=== PATIENT | female | born 1935 | race Caucasian/White ===

== ENCOUNTER 2016-04-20 17:35 | Inpatient (IN) | payer MEDICARE, OTHER ==
[~2016-04-20] VITALS: Ht 157.5 cm; Wt 93.0 kg
[~2016-04-20 17:35] MED LIST: ADV250INH IH; ALBU8.5H4 IH; ASP81TEC PO; ATEN50TA7 PO; COZ50 PO; FURO20TA PO; LIP20 PO; LUN2 PO; VRP180TCR PO; WEL75 PO
[2016-04-20 17:40] VITALS: BP 126/62; PULSE 71; RESP 18; O2SAT 91
[2016-04-20 18:31] LABS: BASOPHILS % (AUTO) 0.1 % (0-3); EOSINOPHILS % (AUTO) 0.4 % (0-5); MONOCYTES % (AUTO) 6.1 % (4-12); Mean Corpuscular Hemoglobin 28.7 pg (27.0-35.0); Mean Corpuscular Volume 87.7 fL (81-100); NEUTROPHILS % (AUTO) 84.5 % (40-74); Platelet Count 146 bil/L (150-400)
--- NOTE | 2016-04-20 18:34 | ED.REPORT ---
HPI-URI / Cough / Cold Date of Service Apr 20, 2016 ED Provider: Doc,Ed MD History of Present Illness: 81-year-old female here for shortness of breath. Started yesterday and is rapidly worsening. She went to the walk-in clinic and her oxygen was found to be in the 80s. They put her on 2 L of oxygen and bumped her up to the mid 90s and sent her to the emergency room. She is complaining of increasing shortness of breath with activity. In the last few days she has had fever and some new URI symptoms. She has a dry cough with no sputum. Does have a history of COPD. SHe is a pack and a half a day smoker. She wears a CPAP at night but has no home oxygen. She lives alone. She does use inhalers including albuterol and Advair. Denies chest pain, dizziness or lightheadedness Nursing Notes Stated Complaint: SHORT OF BREATH Chief Complaint: Respiratory Complaints Nursing Notes Reviewed: Yes Allergies: Coded Allergies: No Known Allergies (Unverified , 11/23/09) Scheduled Albuterol-Expunged Drug, Do Not Renew! (Albuterol-Expunged Drug, Do Not Renew!) 8.5 Gm Hfa.aer.ad 2 PUFFS IH PRN Every 4-6 hours as needed-Rescue Inhaler Aspirin-Expunged Drug, Do Not Renew! (Aspirin EC-Expunged Drug, Do Not Renew!) 81 Mg Tablet 81 MG PO AM STOPPED 5 DAYS AGO Atenolol-Expunged Drug, Do Not Renew! (Atenolol-Expunged Drug, Do Not Renew!) 50 Mg Tablet 50 MG PO BID Atorvastatin-Expunged Drug, Do Not Renew! (Atorvastatin-Expunged Drug, Do Not Renew!) 20 Mg Tablet 20 MG PO HS Bupropion-Expunged Drug, Do Not Renew! (Bupropion-Expunged Drug, Do Not Renew!) 75 Mg Tablet 150 MG PO AM Flutic/Salmet-Expunged Drug, Do Not Renew! (Advair 500/50-Expunged Drug, Do Not Renew!) 60 Puff Disk 60 PUFF IH BID Furosemide-Expunged Drug, Do Not Renew! (Lasix-Expunged Drug, Do Not Renew!) 20 Mg Tablet 20 MG PO AM Losartan-Expunged Drug, Do Not Renew! (Losartan-Expunged Drug, Do Not Renew!) 50 Mg Tablet 50 MG PO AM Verapamil-Expunged Drug, Do Not Renew! (Verapamil-Expunged Drug, Do Not Renew!) 180 Mg Tablet.sa 180 MG PO BID Scheduled PRN Eszopiclone-Expunged Drug, Do Not Renew! (Lunesta-Expunged Drug, Do Not Renew!) 2 Mg Tablet 2 MG PO HS PRN PRN HS General Time Seen by MD: 18:33 Chief Complaint Cough, non-productive, Fever, Upper resp infection SOB Hx Obtained From: Patient Arrived By: Wheelchair Onset Occurred: Yesterday Symptom Duration: Constant Severity: Current: No pain currently Severity: Maximum: No pain Context: Immunization Status General: All up to date Similar Sx Previous: Yes Past Medical History Past Medical History Notes: hx COPD/smoking Past Medical History Reports: COPD Review of Systems Basic Review of Systems Cardiovascular: No chest pain : No dysuria Psychiatric: Normal thought content Constitutional: Reports: Fever Ears / Nose / Throat: Reports: Nasal congestion Respiratory: Reports: Dyspnea on exertion, Non-productive cough, Shortness of breath, Wheezing GI: Denies: Abdominal pain, Nausea, Vomiting Complete sys rev & neg: except as marked. Physical Exam Initial Vital Signs Vital Signs (First) Date Time Temp Pulse Resp B/P Pulse Ox O2 Delivery O2 Flow Rate FiO2 04/20/16 17:40 37.5 71 18 126/62 91 Nasal Cannula 2 Initial VS: Reviewed, Vital signs abnormal Head / Eyes: Atraumatic, Normocephalic, PERRL Neck: Supple, Non-tender, Full range of motion Cardiovascular: Regular rate & rhythm, Heart sounds normal Skin: Warm, Dry, No cyanosis Neurologic: Alert, Oriented Psychiatric: Mood/affect normal, Behavior normal, Normal thought content General/Constitutional: Awake, Alert, No acute distress ENT: Atraumatic, Airway patent, Mucous membranes moist, Pharynx NL, No peritonsillar abscess, No pooling of secretions, No trismus, Tympanic membs NL, Ext aud canal NL, Mastoid area NL Respiratory / Chest: Atraumatic Wheezing / Retractions: Positive: Wheeze insp/exp diffuse speaking full sentences Head / Eyes: Atraumatic, Normocephalic, PERRL, EOMI Neck: Atraumatic, Supple, Full range of motion Cardiovascular: Heart rate NL, Regular rhythm, Heart sounds NL, No gallop, No murmurs, No rubs Abdomen: Atraumatic, Soft, Non-tender, No guarding, No rebound, BS normoactive Skin: Atraumatic, Color NL, No rash 1+ bilat LE pitting edema Interpretation & Diagnostics Interpretation & Diagnostics: CXR- IMPRESSION: No acute disease or interval change Lab Results Interpretation Result Diagram: 04/20/164 04/20/161813 Test 04/20/16 18:14 White Blood Count 7.4th/mm3 (3.8-10.1) Red Blood Count 4.94mil/mm3 (3.90-5.20) Hemoglobin 14.2g/dL (12.0-15.6) Hematocrit 43.3% (35.0-46.0) Mean Corpuscular Volume 87.7fL (81-100) Mean Corpuscular Hemoglobin 28.7pg (27.0-35.0) Mean Corpuscular Hemoglobin Concent 32.8% (32.0-37.0) Red Cell Distribution Width 14.9% (12.3-15.4) Platelet Count 146bil/L (150-400) Neutrophils (%) (Auto) 84.5% (40-74) Lymphocytes (%) (Auto) 8.8% (14-46) Monocytes (%) (Auto) 6.1% (4-12) Eosinophils (%) (Auto) 0.4% (0-5) Basophils (%) (Auto) 0.1% (0-3) Sodium Level 139mEq/L (134-144) Potassium Level 3.8mEq/L (3.5-5.2) Chloride Level 101mEq/L (97-108) Carbon Dioxide Level 23mmol/L (18-29) Blood Urea Nitrogen 21mg/dL (8-27) Creatinine 0.75mg/dL (0.57-1.00) Estimat Glomerular Filtration Rate 107mL/min (>59) Glucose Level 123mg/dL (60-99) Lactic Acid Level 0.8mmol/L (0.4-2.0) Calcium Level 9.4mg/dL (8.5-10.1) Magnesium Level 1.7mg/dL (1.6-2.6) Total Bilirubin 0.5mg/dL (0.0-1.2) Aspartate Amino Transf (AST/SGOT) 17U/L (0-50) Alanine Aminotransferase (ALT/SGPT) 9U/L (0-32) Alkaline Phosphatase 84U/L (25-165) Troponin T < 0.010ug/L (0.0-0.011) Pro-B-Type Natriuretic Peptide 926.4pg/mL (0-738) Total Protein 6.6g/dL (6.4-8.4) Albumin 3.9g/dL (3.4-5.0) Re-Eval/Medical Decision Med Decision/Clinical Course Med Decision/Clinical Course: Patient states no improvement after first DuoNeb treatment. Lung sounds are improved, no inspiratory wheezes only expiratory wheezes throughout. Patient states she does not know what her normal O2 sats are. RN states she was still mid to high 80s on room air. Second albuterol ordered Per RN patient getting up from bed to chair to bed and sats went down to 86 on 2 L oxygen. [address] Lawton agrees with admit 2100 Dr Allison consulted, will admit pt Daughter will get cpap from home Counseled Regarding: Need for admission Discharge & Departure Shift Change Sign-Out Laboratory Evaluation: Lab evaluation discussed Imaging Studies: Imaging discussed Response to Therapy: Improved Impression: Primary Impression: Influenza A Additional Impressions: COPD (chronic obstructive pulmonary disease) COPD type: unspecified COPD Qualified Code: J44.9 - Chronic obstructive pulmonary disease, unspecified Hypoxia Disposition: ADMITTED TO HOSPITAL Discharge Condition All VS Reviewed: Yes Condition: Stable Referrals: Umer Tucker DO (PCP) EDSupervising Provider for APC: Roxy Lawton MD copies to: Anatoliy Castro MD; Roxy Lawton MD, Linnea K ARNP Apr 20, 2016 18:34
[2016-04-20] MEDS ORDERED: Albuterol-Ipratropium 3 mL Inhalation Solution NEB ONE (18:45)
[2016-04-20 18:52] LABS: TROPONIN T < 0.010 ug/L (0.0-0.011)
[2016-04-20 19:00] LABS: Magnesium 1.7 mg/dL (1.6-2.6)
--- NOTE | 2016-04-20 19:22 | DRSVH ---
PROCEDURE: X-RAY CHEST ONE VIEW, PORTABLE ([id number]) INDICATIONS: SOB TECHNIQUE: One view of the chest was acquired. COMPARISON: [facility], , XR CHEST 2VW, 02/04/2015, 15:45. FINDINGS: Surgical changes and devices: None. Lungs and pleura: No pleural effusions or pneumothorax. Diffuse scarring/atelectasis without interva l change since 02/04/15 Mediastinum: Mediastinal contours appear normal. Heart size is normal. Bones and chest wall: No suspicious bony lesions. Overlying soft tissues appear unremarkable. IMPRESSION: No acute disease or interval change Dictated by: Bryon Quinonez M.D. on 04/20/2016 at 19:19 Approved by: Bryon Quinonez M.D. on 04/20/2016 at 19:21
[2016-04-20 19:29] VITALS: PULSE 69; RESP 20; O2SAT 94
[2016-04-20] MEDS ORDERED: Albuterol 2.5 mg/3 mL Inhalation Solution NEB ONE (19:50)
[2016-04-20 19:55] VITALS: BP 147/72; RESP 29; O2SAT 93
[2016-04-20] MEDS ORDERED: MethylprednisoLONE Sodium Succinate 62.5 mg/mL 2 mL Inj IVPUSH ONE (20:15)
[2016-04-20] MEDS ORDERED: Alum-Mag Hydrox-Simeth 30 mL Suspension PO PRN ×2 (21:20→23:40)
[2016-04-20] MEDS ORDERED: Ondansetron 2 mg/mL 2 mL Inj IVPUSH PRN ×2 (21:20→23:40)
[2016-04-20] MEDS ORDERED: SERT25TA6 PO (23:35)
[2016-04-20] MEDS ORDERED: ADV250INH IH (23:35)
[2016-04-20] MEDS ORDERED: ATOR20TA PO (23:35)
[2016-04-20] MEDS ORDERED: ASPI-973 PO (23:35)
[2016-04-20] MEDS ORDERED: VITA400C64 PO (23:35)
[2016-04-20] MEDS ORDERED: ATEN50TA PO (23:35)
[2016-04-20] MEDS ORDERED: AMLO10TA3 PO (23:35)
[2016-04-20] MEDS ORDERED: ACET325T51 PO (23:35)
[2016-04-20] MEDS ORDERED: ALBU18HF INH (23:35)
[2016-04-20] MEDS ORDERED: HYDR12.55 PO (23:35)
[2016-04-20] MEDS ORDERED: ASCO-294 PO (23:35)
[2016-04-20] MEDS ORDERED: LOSA100T29 PO (23:35)
[2016-04-20] MEDS ORDERED: CHOL200025 PO (23:35)
[2016-04-20] MEDS ORDERED: ZOLP10TA5 PO (23:35)
[2016-04-20] MEDS ORDERED: METF500T4 PO (23:35)
[2016-04-20 23:37] VITALS: BP 144/76; PULSE 74; RESP 20; O2SAT 93
[2016-04-20] MEDS ORDERED: Polyethylene Glycol (PEG) 17 Gm Powder PO PRN (23:40)
[2016-04-20] MEDS ORDERED: Albuterol 1.25 mg/3 mL Inhalation Solution NEB PRN (23:40)
[2016-04-21] VITALS (13 sets, daily range): BP systolic 117–158; BP diastolic 69–81; PULSE 69–86; RESP 18–24; O2SAT 92–94
--- NOTE | 2016-04-21 00:16 | PCM.HPMED ---
Subjective Date of Service Apr 20, 2016 Primary Provider: Admitting Physician: Anatoliy Castro MD Primary Care Physician: Umer Tucker DO Attending Physician: Anatoliy Castro MD Admit Status: From the Emergency Department Chief Complaint: Shortness of breath and cough non-productive, Fever, Upper resp infection History of Present Illness: This is a pleasant 81 Y/O F with history of COPD, current tobacco smoker with 90 -pack-year history, obstructive sleep apnea, diabetes mellitus type II on metformin, hypertension on atenolol and losartan, who presented for worsening shortness of breath for last 1.5 days with any sort of activity. Symptoms are associated with fever, bitemporal headaches, swollen glands, sore throat, dry cough, chills, sweats, and body aches. Of note patient states she has had watery diarrhea. Patient states she tried to call her PCP but was unable to get in and went to walk-in clinic. At the walk-in clinic patient was found to have oxygen saturation in the 80s. Patient was placed on 2 L of oxygen and with improvement in her O2 sats to the 90s. Patient then presented to the emergency room and had rapid flu swab conducted which was positive for influenza. She wears a CPAP at night but has no home oxygen. She lives alone, and has 2 daughters Who come and check on her regularly. She does use inhalers including albuterol and Advair. Denies chest pain, dizziness or lightheadedness , sinus pressure, nausea, vomiting, constipation. In the ED patient had bilateral expiratory wheezes and received DuoNeb therapy with some improvement in respiratory symptoms. Patient was found be positive for influenza with rapid flu swab. Vital signs in ED: Temperature 37.5, pulse 71, blood pressure 126/72, respirations 18, 91% on 2 L nasal cannula. Repeat vitals at 2159 were as follows pulse 71, respirations 27, blood pressure 148/73, 93% on 2 L nasal cannula. Hemogram blood cell count 7.4, hemoglobin 14.2, hematocrit 43.3, platelets 146, neutrophils elevated at 84.5. Chemistry panel: Sodium 139, potassium 3.8, chloride 101, CO2 23, BUN 21, creatinine 0.75, glucose 123, lactic acid 0.8, troponin 0.010, pro BNP 926.4, magnesium 1.7 Chest x-ray:No acute disease or interval change Review of Systems: Comprehensive review of systems was conducted and found to be negative except as described in the history of present illness. Allergies Coded Allergies: No Known Allergies (Unverified , 04/20/16) Home Medications Metformin 500 mg daily Hydrochlorothiazide 12.5 mg daily Amlodipine 10 mg daily Atenolol 50 mg twice a day Lipitor 20 mg daily Losartan 100 mg daily Lunesta 2 mg at bedtime Advair 250/50 micrograms 2 per day Ventolin HFA 90 mg as needed Vitamin C 500 mg daily Vitamin D3 2000 IUs daily Vitamin E 400 IUs daily Acetaminophen 650 mg twice a day Sertraline 25 mg daily Aspirin 81 mg daily PMH hx COPD/smoking Social History Hx Alcohol Use: No Hx Substance Use: No Hx Tobacco Use: No Smoking Status: Current Every Day Smoker (1.5 packs per day) Exam Vital Signs Vital Sign - Last Date Time Temp Pulse Resp B/P Pulse Ox O2 Delivery O2 Flow Rate FiO2 04/20/16 21:59 71 27 148/73 93 Nasal Cannula 04/20/16 19:55 2 04/20/16 17:40 37.5 Exam General: Obese female, appears in mild short of breath, with some use of accessory muscles of respiration. Alert and oriented 3, HEENT: Cephalic atraumatic, pupils equally round and reactive to light and accommodation, extraocular muscles intact, neck, supple nontender, positive anterior cervical adenopathy, no masses, no JVD, throat erythema present, no exudates, Lungs: Bilateral expiratory wheeze, poor air movement and poor anterior- posterior chest expansion with poor inspiratory effort. Heart: Regular rate and rhythm no murmur Abdomen: Obese, soft, nontender, normal bowel tones present, no masses, no organomegaly Genitourinary: No suprapubic tenderness Extremities: Pulses equal laterally a per/lower extremity, no apparent edema Neurologic: Grossly neurologically intact, speaking in full sentences, Skin: Dry Lab and Diagnostics Result Diagram: 04/20/16181304/20/161813 X-Rays, CTs and MRIs Date of Service: 04/20/161806 PROCEDURE: X-RAY CHEST ONE VIEW, PORTABLE ([id number]) COMPARISON: [facility], CR, XR CHEST 2VW, 02/04/2015, 15:45. FINDINGS: Surgical changes and devices: None. Lungs and pleura: No pleural effusions or pneumothorax. Diffuse scarring/ atelectasis without interval change since 02/04/15 Mediastinum: Mediastinal contours appear normal. Heart size is normal. Bones and chest wall: No suspicious bony lesions. Overlying soft tissues appear unremarkable. IMPRESSION: No acute disease or interval change Dictated by: Bryon Quinonez M.D. on 04/20/2016 at 19:19 Approved by: Bryon Quinonez M.D. on 04/20/2016 at 19:21 Assessment & Plan This is a pleasant 81 Y/O F with history of COPD, current tobacco smoker with 90 -pack-year history, obstructive sleep apnea, diabetes mellitus type II on metformin, hypertension on atenolol and losartan, who presented for worsening shortness of breath for last 1.5 days with any sort of activity. Symptoms are associated with fever, bitemporal headaches, swollen glands, sore throat, dry cough, chills, sweats, and body aches. Patient was seen in walking clinic and had O2 sats in the 80s. Patient was was positive for influenza in the ED, as well as given DuoNeb therapy for her shortness of breath with some improvement in symptoms. Patient was admitted to the hospital for influenza and acute respiratory failure. # Acute respiratory failure, present on admission, active - Patient was descending into the 80s while at urgent care. - Physical exam significant for bilateral anterior expiratory wheeze - CXR: No acute disease or interval change - She received DuoNeb therapy X 2 in the ED with improvement in respiratory symptoms. - Physical exam significant for bilateral expiratory wheezes - Telemetry ordered - Blood cultures 2 pending - DuoNeb therapy every 4 hours, albuterol neb therapy every 2 hours when necessary # Acute influenza/viral upper respiratory infection, present on admission, active - Patient was positive for rapid flu swab - Received Tamiflu in the ED - Influenza A/B order depends and - Tamiflu 75 mg twice a day 5 days 04/20/2016 # Chronic problems include # Diabetes mellitus type II - We will continue metformin - lactic acid 0.8 -Hemoglobin A1c pending # COPD, - This does not appear to be a acute exacerbation of COPD and therefore will hold off on steroids at this time. # Tobacco smoker - [id number] history of tobacco use, cigarettes, 1.5 packs per day for 60 years - Nicotine patch ordered # Insomnia - Pharmacy to replace with alternative to Lunesta 2 mg daily at bedtime Disposition: Admitted to in patient service with expected length of stay greater than 2 days, secondary to severity of presenting symptoms, treatment plan, complexity of clinical work up, and risk of adverse events. CODE STATUS: Full Code PCP: Umer Tucker DVT PE prophylaxis: Subcutaneous heparin VTE Prophylaxis: Sub-Q Heparin (Unfractionated) Resuscitation Status: CPR: Attempt Resuscitation Attending Statement The patient was seen and examined together with Dr. Dyer on 04/20 and I agree with the history, exam and plan as outlined in the note above. Jony Dyer DO Apr 20, 2016 23:00 Anatoliy Castro MD Apr 21, 2016 00:27 DVT PE prophylaxis: Subcutaneous heparin VTE Prophylaxis: Sub-Q Heparin (Unfractionated) Resuscitation Status: CPR: Attempt Resuscitation Attending Statement The patient was seen and examined together with Dr. Dyer on 04/20 and I agree with the history, exam and plan as outlined in the note above. Jony Dyer DO Apr 20, 2016 23:00 Anatoliy Castro MD Apr 21, 2016 00:27
[2016-04-21] MEDS: LUNESTA 2 MG PO SCH (00:36)
[2016-04-21] MEDS: Heparin 5,000 Unit/mL Inj SUBQ SCH ×3 (00:40→18:21)
[2016-04-21] MEDS ORDERED: ESZO2TAB30 PO (00:44)
[2016-04-21] MEDS: Albuterol-Ipratropium 3 mL Inhalation Solution NEB SCH ×6 (00:46→21:20)
--- NOTE | 2016-04-21 01:19 | NUR ---
ADMIT NOTE [place] [facility] [place]015 @ approx 2310. Pt alert and oriented. Able to ambulate, SOB w/ activity. Pt on 2L oxygen, pt does not use home oxygen. Pts IV saline locked. Pt c/o some headache pain. Pt has unproductive cough. Pt placed on remote telemetry. Pt placed on droplet precautions d/t +Influenza A per lab results. RT assisted w/ getting pts home CPAP setup. Pt placed on CPOx. Continue to monitor. Call light in reach. Intentional rounding.
--- NOTE | 2016-04-21 01:24 | NUR ---
HOME MEDICATIONS/MED REC Med rec completed using pts home list and pt interview. Some medications needed to be changed from medication list pt provided. Pts home med bottle labeled eszopiclone 2mg walked down to pharmacy, and will be used during pts hospital stay. Pharmacist, Rosy and RN counted pts pills, 28 pills. Hospital pharmacy does not stock this medication. Pt wants to take home medication, as this medication is effective for her, Ambien was not effective. Pharmacy staff member will walk pill up nightly, and to be co-signed w/ RN. All other pt medications taken home w/ pts daughter, Sandie.
--- NOTE | 2016-04-21 01:24 | NUR ---
Belongings Patient arrived on unit via stretcher from ED, accompanied with her daughter Sandie. Hearing aids, reading glasses, undergarments, pants, jacket, cane, and pt CPAP in room with patient. Daughter Sandie took pt purse home with her.
[2016-04-21] MEDS ORDERED: Albuterol 2.5 mg/3 mL Inhalation Solution NEB PRN (01:40)
[2016-04-21 02:20] LABS: APPEARANCE,URINE CLEAR (CLEAR,HAZY); COLOR,URINE YELLOW (YELLOW); OCCULT BLOOD,URINE TRACE (NEGATIVE); PH,URINE 5.5 (5.0-8.0); UROBILINOGEN,URINE NORMAL (NORMAL)
[2016-04-21 06:32] LABS: BASOPHILS % (AUTO) 0.2 % (0-3); EOSINOPHILS % (AUTO) 0 % (0-5); MONOCYTES % (AUTO) 2.4 % (4-12); Mean Corpuscular Hemoglobin 28.7 pg (27.0-35.0); Mean Corpuscular Volume 87.3 fL (81-100); NEUTROPHILS % (AUTO) 87.6 % (40-74); Platelet Count 143 bil/L (150-400)
[2016-04-21] MEDS: Fluticasone-Salmererol 250-50 Inhaler INHALATION SCH ×2 (08:11→20:52)
--- NOTE | 2016-04-21 15:34 | NUR ---
O2 Sats: Patient given trial on room air by titrating down from 2L O2 NC per MD instruction in preparation for possible afternoon discharge. Patient's O2 sats dropped to 86-88% on RA within 2 minutes. Patient denies symptoms, RR remains in the low 20, no signs of SOB noted. When placed back on 2L NC patient's sats return to mid-high 90s. Bed low and locked, call light in reach, CPOX in place, care and frequent rounding ongoing.
--- NOTE | 2016-04-21 16:08 | NUR ---
Social Work: Initial Assessment D: Per EMR review, pt is an 81 year old female admitted for Influenze and hypoxia. Pt is Medicare with for Life Supplement; pt has no LTC or VA benefits. PCP is Umer Tucker DO. NOK is Sandie Guillaume, dtr, . Advanced directives requested by EARTH MOVING TECHNICIAN- pt states she will have family provide copy. Readmit score is not entered at this time. EARTH MOVING TECHNICIAN met with pt at bedside. Sw role explained and contact information provided. See initial assessment. Pt lives at home, in [place], alone. Pt states she is I with ADLs and uses a cane for ambulation. Pt states she has never had HH or skilled rehab. Pt states that she has no concerns about discharge home once medically stable and that her daughter will be transporting. EMR reviewed, pt has been I during admission thus far. A: Pt who is I at baseline. P: Anticipate pt to discharge home with no social work needs once medically stable; EARTH MOVING TECHNICIAN to continue to follow and assist if needs arise. NOE Downey Addendum: 04/21/16 at 1619 by JODY ANGLIN Amended: Links added.
--- NOTE | 2016-04-21 16:40 | PCM.PNMED ---
Subjective Date of Service Apr 21, 2016 Subjective denies any new issues/complaints Exam Vital Signs Vital Sign - Last Date Time Temp Pulse Resp B/P Pulse Ox O2 Delivery O2 Flow Rate FiO2 04/21/16 15:49 74 18 93 Nasal Cannula 2.00 04/21/16 13:40 36.8 122/72 Intake and Output 04/20/16 04/20/16 04/21/16 Cumulative From/Thru 15:00 23:00 07:00 04/20/16 23:14 - 04/21/16 06:08 Intake Total 800 ml 800 ml Output Total 250 ml 250 ml Balance 550 ml 550 ml Intake Oral 800 ml 800 ml Output Urine Total 250 ml 250 ml # Voids 2 2 # Bowel Movements 2 2 General: Alert, Oriented X3, Cooperative, No Acute Distress Eyes: Scleral Anicteric Mouth: Mucous Membr Moist/[place] Neck: Supple Chest & Lungs: Chest Wall Normal, Coarse breath sounds (bilat), Other (mild insp and exp bilat) Cardiovascular: Regular Rate/Rhythm Abdomen: Non-tender, Non-distended, Normoactive bowel tones, Soft Extremities: No cyanosis/clubbing/edma bilat Neurological: Grossly Neurologically Intact, Normal Speech IVs and Medications Medications Reviewed: Medications were reviewed in detail Lab and Diagnostics Result Diagram: 04/21/1655404/21/16554 X-Rays, CTs and MRIs Date of Service: 04/20/16 180 PROCEDURE: X-RAY CHEST ONE VIEW, PORTABLE ([id number]) COMPARISON: [facility], CR, XR CHEST 2VW, 02/04/2015, 15:45. FINDINGS: Surgical changes and devices: None. Lungs and pleura: No pleural effusions or pneumothorax. Diffuse scarring/ atelectasis without interval change since 02/04/15 Mediastinum: Mediastinal contours appear normal. Heart size is normal. Bones and chest wall: No suspicious bony lesions. Overlying soft tissues appear unremarkable. IMPRESSION: No acute disease or interval change Dictated by: Bryon Quinonez M.D. on 04/20/2016 at 19:19 Approved by: Bryon Quinonez M.D. on 04/20/2016 at 19:21 Assessment & Plan 81 Y/O F with history of COPD, current tobacco smoker with [id number] history , obstructive sleep apnea, diabetes mellitus type II on metformin, hypertension on atenolol and losartan, who presented for worsening shortness of breath for last 1.5 days with any sort of activity. Symptoms are associated with fever, bitemporal headaches, swollen glands, sore throat, dry cough, chills, sweats, and body aches. Patient was seen in walking clinic and had O2 sats in the 80s. Patient was was positive for influenza in the ED. Patient was admitted to the hospital for influenza and acute respiratory failure. # Acute respiratory failure, present on admission, improving - Patient was descending into the 80s while at urgent care. - Physical exam significant for bilateral anterior expiratory wheeze - CXR: No acute disease or interval change - c/w IV Solu-Medrol - c/w Nebs # Acute influenza/viral upper respiratory infection, present on admission, active - Patient was positive for rapid flu swab - Received Tamiflu in the ED - c/w Tamiflu 75 mg twice a day 5 days 04/20/2016 # Acute COPD exacerbation, present on admission. ongoing - plan as noted above # Chronic problems include # Diabetes mellitus type II - continue metformin - lactic acid 0.8 - Hemoglobin A1c pending - ISS while on steroids # Tobacco smoker - [id number] history of tobacco use, cigarettes, 1.5 packs per day for 60 years - Nicotine patch ordered # Insomnia - Pharmacy to replace with alternative to Lunesta 2 mg daily at bedtime Dispo: likely tomorrow pending improved oxygenation. VTE Prophylaxis: Sub-Q Heparin (Unfractionated) Resuscitation Status: CPR: Attempt Resuscitation Asa Sarmiento Apr 21, 2016 16:40
[2016-04-21] MEDS: Insulin Human REGular 300 Unit/3 mL Inj SUBQ SCH ×2 (18:20→21:09)
[2016-04-21] MEDS: predniSONE 20 mg Tablet PO SCH (18:20)
[2016-04-22] VITALS (14 sets, daily range): BP systolic 120–155; BP diastolic 73–84; PULSE 63–84; RESP 18–23; O2SAT 90–96
[2016-04-22] MEDS: LUNESTA 2 MG PO SCH ×2 (00:08→21:00)
[2016-04-22] MEDS: Heparin 5,000 Unit/mL Inj SUBQ SCH ×3 (00:09→17:09)
[2016-04-22] MEDS: Albuterol-Ipratropium 3 mL Inhalation Solution NEB SCH ×6 (01:11→20:39)
--- NOTE | 2016-04-22 05:39 | NUR ---
Oxygen Patient complaining of SOB with exertion/activity to the bathroom. While lying in bed, O2 saturation remains stable in the 90's. With activity and when pt lays on her side, O2 sats drop to 87 while being on 2 L via CPAP or nasal cannula. Oxygen increased to 3 L via CPAP to maintain adequate levels of above 90. Respiratory nebs are being given by RT per schedule.
[2016-04-22] MEDS: Insulin Human REGular 300 Unit/3 mL Inj SUBQ SCH ×4 (07:30→21:06)
--- NOTE | 2016-04-22 08:35 | NUR ---
[facility] Signed
[2016-04-22] MEDS: Fluticasone-Salmererol 250-50 Inhaler INHALATION SCH ×2 (09:03→21:07)
[2016-04-22] MEDS: predniSONE 20 mg Tablet PO SCH (10:30)
--- NOTE | 2016-04-22 10:32 | NUR ---
Oxygen Pt on CPAP this AM, sleeping. She got up to chair to eat breakfast and was placed on RA at that time (approx ~ 0800). Pt has a CPOX hooked up and 02 has been stable at 91-92% on RA with activity, while talking/eating and at rest. Pt states when she sleeps, she needs her CPAP on at all times. Will continue to monitor 02 levels.
--- NOTE | 2016-04-22 12:31 | NUR ---
Home oxygen evaluation. At rest on RA 93%. Patient walked on RA Sp02 87%, placed on 2lpm NC to keeps sats>92% with exertion. Patient will qualify for home oxygen at this time.
--- NOTE | 2016-04-22 15:13 | NUR ---
Desat Pt 02 maintaining at 90% on RA with no activity. Once pt gets up to amb or use the BR, 02 will drop to 87%. Pt states, "I feel like I'm working breathing." MD notified of ongoing titration attempts.
--- NOTE | 2016-04-22 16:00 | PCM.PNMED ---
Subjective Date of Service Apr 22, 2016 Subjective denies any new issues/complaints Exam Vital Signs Vital Sign - Last Date Time Temp Pulse Resp B/P Pulse Ox O2 Delivery O2 Flow Rate FiO2 04/22/16 15:23 Supplement Oxygen 04/22/16 13:49 36.8 78 20 137/73 92 04/22/16 09:44 2.00 Intake and Output 04/21/16 04/21/16 04/22/16 Cumulative From/Thru 15:00 23:00 07:00 04/20/16 23:14 - 04/22/16 05:52 Intake Total 1436 ml 400 ml 2636 ml Output Total 700 ml 900 ml 1850 ml Balance 736 ml -500 ml 786 ml Intake Oral 1436 ml 400 ml 2636 ml Output Urine Total 700 ml 900 ml 1850 ml # Voids 1 3 # Bowel Movements 1 3 Exam General: Alert, Oriented X3, Cooperative, No Acute Distress Eyes: Scleral Anicteric Mouth: Mucous Membr Moist/[place] Neck: Supple Chest & Lungs: Chest Wall Normal, Coarse breath sounds (bilat), Other (mild insp and exp bilat) Cardiovascular: Regular Rate/Rhythm Abdomen: Non-tender, Non-distended, Normoactive bowel tones, Soft Extremities: No cyanosis/clubbing/edema bilat Neurological: Grossly Neurologically Intact, Normal Speech IVs and Medications Medications Reviewed: Medications were reviewed in detail Lab and Diagnostics Result Diagram: 04/21/1655404/21/16554 X-Rays, CTs and MRIs Date of Service: 04/20/16 180 PROCEDURE: X-RAY CHEST ONE VIEW, PORTABLE ([id number]) COMPARISON: [facility], CR, XR CHEST 2VW, 02/04/2015, 15:45. FINDINGS: Surgical changes and devices: None. Lungs and pleura: No pleural effusions or pneumothorax. Diffuse scarring/ atelectasis without interval change since 02/04/15 Mediastinum: Mediastinal contours appear normal. Heart size is normal. Bones and chest wall: No suspicious bony lesions. Overlying soft tissues appear unremarkable. IMPRESSION: No acute disease or interval change Dictated by: Bryon Quinonez M.D. on 04/20/2016 at 19:19 Approved by: Bryon Quinonez M.D. on 04/20/2016 at 19:21 Assessment & Plan 81 Y/O F with history of COPD, current tobacco smoker with [id number] history , obstructive sleep apnea, diabetes mellitus type II on metformin, hypertension on atenolol and losartan, who presented for worsening shortness of breath for last 1.5 days with any sort of activity. Symptoms are associated with fever, bitemporal headaches, swollen glands, sore throat, dry cough, chills, sweats, and body aches. Patient was seen in walking clinic and had O2 sats in the 80s. Patient was was positive for influenza in the ED. Patient was admitted to the hospital for influenza and acute respiratory failure. # Acute respiratory failure, present on admission, improving - still desaturating to high 80's on ambulation - Physical exam notable for bilateral anterior expiratory wheeze - CXR: No acute disease or interval change - c/w IV Solu-Medrol - c/w Nebs # Acute influenza/viral upper respiratory infection, present on admission, active - Patient was positive for rapid flu swab - Received Tamiflu in the ED - c/w Tamiflu 75 mg twice a day 5 days 04/20/2016 # Acute COPD exacerbation, present on admission. ongoing - plan as noted above # Chronic problems include # Diabetes mellitus type II - continue metformin - lactic acid 0.8 - Hemoglobin A1c pending - ISS while on steroids # Tobacco smoker - [id number] history of tobacco use, cigarettes, 1.5 packs per day for 60 years - Nicotine patch ordered # Insomnia - Pharmacy to replace with alternative to Lunesta 2 mg daily at bedtime Dispo: likely tomorrow pending improved oxygenation. VTE Prophylaxis: Sub-Q Heparin (Unfractionated) VTE Mechanical Devices: Intermittant Pneumatic CD Resuscitation Status: CPR: Attempt Resuscitation Time spent 25 min Asa Sarmiento Apr 22, 2016 16:00
--- NOTE | 2016-04-22 18:14 | NUR ---
02/activity Pt took a shower this afternoon, placed on 2L via NC preemptively to prevent desat/distress. On 2L during activity, her 02 sats remained in mid-high 90's with no c/o SOB. Pt placed back on a CPOX at bedside, ind removing 02 and while sitting at EOB, eating/drinking and conversing with family her 02 will bounce between 87-92%. She has denied feeling SOB. Currently on RA, 02 90%. Bed in lowest, locked position and call light in reach.
[2016-04-23] VITALS (7 sets, daily range): BP systolic 136–170; BP diastolic 82–92; PULSE 61–74; RESP 18–20; O2SAT 91–96
[2016-04-23] MEDS: Albuterol-Ipratropium 3 mL Inhalation Solution NEB SCH ×3 (00:10→08:47)
[2016-04-23] MEDS: Heparin 5,000 Unit/mL Inj SUBQ SCH ×2 (00:29→08:07)
[2016-04-23] MEDS: Insulin Human REGular 300 Unit/3 mL Inj SUBQ SCH ×2 (07:30→11:30)
[2016-04-23] MEDS: Fluticasone-Salmererol 250-50 Inhaler INHALATION SCH (08:00)
[2016-04-23] MEDS: predniSONE 20 mg Tablet PO SCH (08:00)
[2016-04-23] MEDS ORDERED: NICO1PAT6 TOPICAL (11:44)
[2016-04-23] MEDS ORDERED: OSLT75C PO (11:44)
[2016-04-23] MEDS ORDERED: PRE20 PO (11:44)
--- NOTE | 2016-04-23 11:47 | PCM.DIMED ---
Discharge Instructions Date of Service Apr 23, 2016 Dates of Hospitalization Apr 20, 2016 at 22:02 Discharge Diagnosis Discharge Diagnosis # Acute respiratory failure, present on admission, improving # Acute influenza A / viral upper respiratory infection, present on admission, active # Acute COPD exacerbation, present on admission. Improving # Chronic problems include # Diabetes mellitus type II - Hemoglobin A1C 6.5 # Tobacco smoke # Insomnia Diet Heart Healthy, Diabetic Activity No restrictions Call your provider Fever or Chills, Shortness of breath, Chest pain, Vomitting Patient Instructions Seek immediate medical attention if any new or worsening signs or symptoms occur. STOP SMOKING ! Follow-up plan 1. Followup with primary care provider in 2-4 days. Follow-up Provider: Umer Tucker Masoud Apr 23, 2016 11:47
--- NOTE | 2016-04-23 11:59 | NUR ---
Social Work Discharge: SW acknowledged order for discharge. SW met with patient and family at bedside to discuss discharge plan. Patient resides home alone in [place] and daughter Sandie, resides within 5 miles of patient home and checks in frequently. Patient has no home 02 at home. Respiratory therapist to consult with patient today to determine home 02 needs. Patient and daughter denied need for HHC at this time. Patient has PCP appointment on the . No anticipated discharge needs identified at this time. SW to follow. PLAN: Home alone with daughter support. Respiratory following for home 02 needs. SW to follow as further needs arise. Gnozales LIU
--- NOTE | 2016-04-23 13:40 | NUR ---
Discharge Discharge paperwork, care notes, and medications reviewed with disclaimer signed. IV DCd intact, tele removed, all belongings with pt, no s/sx of distress. Home med picked up from pharmacy. Portable O2 reviewed, initiated for transfer, pt tolerating at 2L NC. Pt taken curbside in WC at 1340. Daughter driving home in vehicle.
--- NOTE | 2016-04-23 18:33 | PCM.DC.MED ---
Discharge Summary Date of Service Apr 23, 2016 Dates of Hospitalization Date of Hospital Admission Apr 20, 2016 at 22:02 Date of Discharge: Apr 23, 2016 Providers: Admitting Physician: Anatoliy Castro MD Primary Care Physician: Umer Tucker DO Attending Physician: Anatoliy Castro MD Diagnosis at Time of Discharge Diagnosis at Time of Discharge # Acute respiratory failure, present on admission, improving # Acute influenza A / viral upper respiratory infection, present on admission, active # Acute COPD exacerbation, present on admission. Improving # Chronic problems include # Diabetes mellitus type II - Hemoglobin A1C 6.5 # Tobacco smoke # Insomnia Procedures XRay, CTs & MRIs Date of Service: 04/20/16 180 PROCEDURE: X-RAY CHEST ONE VIEW, PORTABLE ([id number]) IMPRESSION: No acute disease or interval change Dictated by: Bryon Quinonez M.D. on 04/20/2016 at 19:19 Approved by: Bryon Quinonez M.D. on 04/20/2016 at 19:21 Brief History As noted in H&P by Dr. Dyer: This is a pleasant 81 Y/O F with history of COPD, current tobacco smoker with 90 -pack-year history, obstructive sleep apnea, diabetes mellitus type II on metformin, hypertension on atenolol and losartan, who presented for worsening shortness of breath for last 1.5 days with any sort of activity. Symptoms are associated with fever, bitemporal headaches, swollen glands, sore throat, dry cough, chills, sweats, and body aches. Of note patient states she has had watery diarrhea. Patient states she tried to call her PCP but was unable to get in and went to walk-in clinic. At the walk-in clinic patient was found to have oxygen saturation in the 80s. Patient was placed on 2 L of oxygen and with improvement in her O2 sats to the 90s. Patient then presented to the emergency room and had rapid flu swab conducted which was positive for influenza. She wears a CPAP at night but has no home oxygen. She lives alone, and has 2 daughters Who come and check on her regularly. She does use inhalers including albuterol and Advair. Denies chest pain, dizziness or lightheadedness , sinus pressure, nausea, vomiting, constipation. In the ED patient had bilateral expiratory wheezes and received DuoNeb therapy with some improvement in respiratory symptoms. Patient was found be positive for influenza with rapid flu swab. Vital signs in ED: Temperature 37.5, pulse 71, blood pressure 126/72, respirations 18, 91% on 2 L nasal cannula. Repeat vitals at 2159 were as follows pulse 71, respirations 27, blood pressure 148/73, 93% on 2 L nasal cannula. Hemogram blood cell count 7.4, hemoglobin 14.2, hematocrit 43.3, platelets 146, neutrophils elevated at 84.5. Chemistry panel: Sodium 139, potassium 3.8, chloride 101, CO2 23, BUN 21, creatinine 0.75, glucose 123, lactic acid 0.8, troponin 0.010, pro BNP 926.4, magnesium 1.7 Chest x-ray:No acute disease or interval change Hospital Course # Acute respiratory failure, present on admission, improving - still desaturating to high 80's on ambulation - assessed by respiratory therapist and qualifies for home O2 at 2L NC # Acute influenza/viral upper respiratory infection, present on admission, active - Patient was positive for rapid flu swab - Received Tamiflu in the ED - c/w Tamiflu 75 mg twice a day 5 days # Acute COPD exacerbation, present on admission. ongoing but significantly improved - by day of d/c lung exam is notable for only very faint expiratory wheezing - pt speaking in full sentences and wants to go home # Chronic problems include # Diabetes mellitus type II - continue metformin # Tobacco smoker - 64-[id number] history of tobacco use, cigarettes, 1.5 packs per day for 60 years - Nicotine patch prescription provided and patient strongly advised to stop smoking especially now that on supplemental O2. pt expresses clear understanding of the risks of smoking while on O2 and agrees to stop smoking. # Insomnia. stable. Exam Vital Signs (Last) Date Time Temp Pulse Resp B/P Pulse Ox O2 Delivery O2 Flow Rate FiO2 04/23/16 12:06 Room Air 04/23/16 11:31 64 04/23/16 09:35 36.8 20 136/82 92 04/23/16 03:48 2.00 Test 04/20/16 18:14 04/21/16 02:00 04/21/16 05:55 04/22/16 11:55 Lactic Acid Level 0.8mmol/L (0.4-2.0) Magnesium Level 1.7mg/dL (1.6-2.6) Troponin T < 0.010ug/L (0.0-0.011) Pro-B-Type Natriuretic Peptide 926.4pg/mL (0-738) Urine Color Yellow (YELLOW) Urine Appearance Clear (CLEAR,HAZY) Urine pH 5.5 (5.0-8.0) Urine Specific [place] 1.020 (1.003-1.035) Urine Protein Negativemg/dL (NEG,TRACE) Urine Glucose (UA) Negativemg/dL (NEGATIVE) Urine Ketones Negativemg/dL (NEGATIVE) Urine Occult Blood Trace (NEGATIVE) Urine Nitrite Negative (NEGATIVE) Urine Bilirubin Negative (NEGATIVE) Urine Urobilinogen Normalmg/dL (NORMAL) Urine Leukocyte Esterase Negative (NEGATIVE) Urine RBC 0-2/hpf (0-2) Urine WBC 0-5/hpf (0-5) Urine Epithelial Cells Few/hpf (NONE-MOD) Urine Crystals None seen (NONE SEEN) Urine Bacteria None/hpf (NONE-FEW) Urine Hyaline Casts Rare/lpf (NONE) Urine Granular Casts None seen (NONE SEEN) Urine Waxy Casts None seen (NONE SEEN) Urine Red Blood Cell Casts None seen (NONE SEEN) Urine White Blood Cell Casts None seen (NONE SEEN) Urine Mucus Present (None Seen) Urine Trichomonas None seen (NONE SEEN) Urine Yeast None (NONE SEEN) Urinalysis Comment None Urine Culture Reflexed Not indicated White Blood Count 4.6th/mm3 (3.8-10.1) Red Blood Count 4.57mil/mm3 (3.90-5.20) Hemoglobin 13.1g/dL (12.0-15.6) Hematocrit 39.9% (35.0-46.0) Mean Corpuscular Volume 87.3fL (81-100) Mean Corpuscular Hemoglobin 28.7pg (27.0-35.0) Mean Corpuscular Hemoglobin Concent 32.8% (32.0-37.0) Red Cell Distribution Width 14.8% (12.3-15.4) Platelet Count 143bil/L (150-400) Neutrophils (%) (Auto) 87.6% (40-74) Lymphocytes (%) (Auto) 9.6% (14-46) Monocytes (%) (Auto) 2.4% (4-12) Eosinophils (%) (Auto) 0% (0-5) Basophils (%) (Auto) 0.2% (0-3) Sodium Level 135mEq/L (134-144) Potassium Level 3.9mEq/L (3.5-5.2) Chloride Level 97mEq/L (97-108) Carbon Dioxide Level 23mmol/L (18-29) Blood Urea Nitrogen 24mg/dL (8-27) Creatinine 0.83mg/dL (0.57-1.00) Estimat Glomerular Filtration Rate 95mL/min (>59) Glucose Level 290mg/dL (60-99) Hemoglobin A1c 6.5% (4.8-5.6) Calcium Level 8.9mg/dL (8.5-10.1) Total Bilirubin 0.5mg/dL (0.0-1.2) Aspartate Amino Transf (AST/SGOT) 15U/L (0-50) Alanine Aminotransferase (ALT/SGPT) 8U/L (0-32) Alkaline Phosphatase 78U/L (25-165) Total Protein 6.0g/dL (6.4-8.4) Albumin 3.7g/dL (3.4-5.0) Procalcitonin 0.08ng/mL (0.00-0.08) Discharge Medications Discharge Medications Acetaminophen (Acetaminophen) 325 Mg Tablet 625 MG PO BID (Reported) Amlodipine (Amlodipine) 10 Mg Tablet 10 MG PO DAILY (Reported) Ascorbate Calcium (Vitamin C) 500 Mg Tablet 500 MG PO DAILY (Reported) Aspirin (Aspirin) 81 Mg Tablet 81 MG PO DAILY (Reported) Atenolol (Atenolol) 50 Mg Tablet 50 MG PO BID (Reported) Atorvastatin (Lipitor) 20 Mg Tablet 20 MG PO HS (Reported) Cholecalciferol (Vitamin D3) (Vitamin D3) 2,000 Unit Tablet 2,000 UNIT PO DAILY (Reported) Eszopiclone (Eszopiclone) 2 Mg Tablet 2 MG PO HS (Reported) Fluticasone/Salmeterol (Advair 250-50 Diskus) 60 Puff/Inh Disk 1 PUFF IH BID ( Reported) Hydrochlorothiazide (Hydrochlorothiazide) 12.5 Mg Tablet 12.5 MG PO DAILY ( Reported) Losartan Potassium (Losartan Potassium) 100 Mg Tablet 100 MG PO HS (Reported) Metformin (Metformin) 500 Mg Tablet 500 MG PO DAILY (Reported) Nicotine 21 mg/24 hr Patch (Nicotine 21 mg/24 hr Patch) 1 Each Patch.td24 1 PATCH TOPICAL DAILY Prescribed by: СЕРГЕЙ PALMER MD Oseltamivir Phosphate (Tamiflu) 10 Cap/Pkg Capsule 75 MG PO BID Prescribed by: СЕРГЕЙ PALMER MD Prednisone (PredniSONE) 20 Mg Tablet 40 MG PO DAILY Prescribed by: СЕРГЕЙ PALMER MD Sertraline HCl (Sertraline) 25 Mg Tablet 25 MG PO DAILY (Reported) Vitamin E Mixed (Vitamin E) 400 Unit Capsule 400 UNIT PO DAILY (Reported) As needed Albuterol Sulfate (Ventolin HFA Inhaler) 200 Puff/18 Gm Inhaler 1 PUFF INH Q4 PRN PRN For Wheezing (Reported) Followup Plan Disposition: Home with home O2 Follow-up plan 1. Followup with primary care provider in 2-4 days. Discharge Diet: Heart Healthy, Diabetic Discharge Activity: No restrictions Patient Instructions Seek immediate medical attention if any new or worsening signs or symptoms occur. STOP SMOKING ! Follow-up Provider: Umer Tucker DO Time spent 40 min copies to: Umer Tucker Masoud Apr 23, 2016 18:33
== END 2016-04-23 13:37 | disposition home or self-care (01) | DRG 189 ==
LOC: SED 17:35 → MPC 22:02
PROVIDERS: ADMIT Hospitalist; ATTEND Hospitalist
DX: J96.01 Acute respiratory failure with hypoxia (principal); J44.1 Chronic obstructive pulmonary disease with (acute) exacerbation; J10.1 Influenza due to other identified influenza virus with other respiratory manifestations; F17.210 Nicotine dependence, cigarettes, uncomplicated; G47.33 Obstructive sleep apnea (adult) (pediatric); E11.9 Type 2 diabetes mellitus without complications; G47.00 Insomnia, unspecified; Z79.84 Long term (current) use of oral hypoglycemic drugs; Z79.82 Long term (current) use of aspirin